=== PATIENT | female | born 1960 | race Hispanic/Latino ===

== ENCOUNTER 2017-04-06 13:38 | Emergency (ER) | payer MEDICAID ==
[2017-04-06] MEDS ORDERED: Water For Inject, Bacteriostat 30 ML ONE (14:24)
[2017-04-06] MEDS ORDERED: methylPREDNISolone Sod Succ/PF 125 MG/2 ML VIAL ONE (14:24)
[2017-04-06 14:30] LABS: #Basophils 0.1 thou/uL (0.0-0.2); #Eosinphils 0.1 thou/uL (0.0-0.7); #Lymphocytes 3.4 thou/uL (1.20-3.40); #Monocytes 0.7 thou/uL (0.11-0.59); #Neutrophils 5.5 thou/uL (1.40-6.50); %Eosinophils 1.4 % (0.0-10.0); %Lymphocytes 34.3 % (21.0-51.0); Hematocrit 41.7 % (36.0-47.0); Mean Platelet Volume 7.8 fL (7.4-10.4); Red Blood Cell (RBC) Count 4.52 mill/uL (4.20-5.40); White Blood Cell (WBC) Count 9.8 thou/uL (4.8-10.8)
[2017-04-06 14:37] LABS: PTT 29.1 SEC (22.9-36.1)
[2017-04-06 14:53] LABS: ALT (SGPT) 25 U/L (8-55); AST (SGOT) 17 U/L (5-34); Alkaline Phosphatase 101 U/L (40-150); Anion Gap 13 mmol/L (10-20); BUN (Urea Nitrogen) 10 mg/dL (9.8-20.1); Bilirubin, Total 0.4 mg/dL (0.2-1.2); CK (CPK) 68 U/L (29-168); Calc. Creatinine Clearance 0 mL/min (70-130); Calcium 9.6 mg/dL (7.8-10.44); Carbon Dioxide 24 mmol/L (22-29); Chloride 106 mmol/L (98-107); Estimated GFR-MDRD 74; Globulin 3.9 g/dL (2.4-3.5); Lipase 18 U/L (8-78); Protein, Total 7.9 g/dL (6.0-8.3)
[2017-04-06 14:56] LABS: Troponin I Less than 0.010 ng/mL (< 0.028)
--- NOTE | 2017-04-06 15:18 | RAD ---
TWO VIEW CHEST SERIES: COMPARISON: 01/31/17. INDICATION: Dyspnea. FINDINGS: No consolidation, effusion, or pneumothorax. Cardiac silhouette is within normal limits of size. L chung overlie the chest limiting detail. There is evidence of postoperative change within the cervic al spine and metallic clips are seen overlying the right aspect of the neck. IMPRESSION: No focal consolidation. POS: [facility]
[2017-04-06 15:48] LABS: Oxyhemoglobin 92.4 % (94.0-97.0); Sodium 144 mmol/L (135-148)
[2017-04-06 15:49] LABS: Mode ROOM AIR; Modified Allen's Test POSITIVE
--- NOTE | 2017-04-06 16:23 | CT ---
CTA OF THE THORAX UTILIZING IV CONTRAST PE PROTOCOL AND 3D REFORMATTED IMAGING 04/06/17 INDICATION: Dyspnea COMPARISON: None. FINDINGS: No central or segmental pulmonary embolus is present. The heart and great vessels appear within norm al limits. There is some subsegmental volume loss seen within the posterior lower lobes dependently. No conflue nt air space opacity, pleural effusion or pneumothorax is evident. No pathologically enlarged lymph nodes are evident. There are bilateral prepectoral breast implants. There are nonpathologically enla rged lymph nodes within the axilla. There is fatty infiltration of the liver with areas of focal spa rring near the gallbladder fossa. The pancreas and adrenal glands appear within normal limits. No definite acute osseous abnormality is evident. IMPRESSION: 1. No central or segmental pulmonary embolus present. 2. Fatty liver. POS: [facility]
[2017-04-06] MEDS ORDERED: ISOVUE-370 76%-LOCM 1 ML ONE (16:40)
[2017-04-06] MEDS ORDERED: Ondansetron HCl/PF 4 MG/2 ML Vial ONE (16:46)
== END 2017-04-06 17:09 | disposition home or self-care (01) ==
LOC: ERS 13:38
DX: R07.89 Other chest pain (principal); R06.00 Dyspnea, unspecified; I10 Essential (primary) hypertension; F41.9 Anxiety disorder, unspecified; Z87.891 Personal history of nicotine dependence
CPT/HCPCS: 36415; 71020; 71275; 80053; 82553; 82805; 83690; 83880; 84484; 85025; 85379; 85610; 85730; 93005; 94640; 96374; 96375; J2270; J2405; J2930; J7620

== ENCOUNTER 2017-08-21 15:13 | Emergency (ER) | payer MEDICAID ==
[2017-08-21] MEDS ORDERED: Adacel (T-DAP) 0.5 ML VIAL ONE (15:39)
--- NOTE | 2017-08-21 15:58 | RAD ---
RIGHT LITTLE FINGER 3 VIEWS: HISTORY: Right finger injury. FINDINGS: Soft tissue swelling is apparent. Joint spaces are preserved. No acute fracture, dislocation, or me tallic foreign bodies. IMPRESSION: No acute osseous abnormalities are demonstrated. POS: [facility]
[2017-08-21] MEDS ORDERED: Ondansetron ODT 4 MG TAB ONE (16:00)
[2017-08-21] MEDS ORDERED: Bacitracin Zinc 1 Packet ONE (16:00)
[2017-08-21] MEDS ORDERED: HYDROcodone/Acetaminophen 5/325 mg Tablet ONE (16:19)
[2017-08-21] MEDS ORDERED: diphenhydrAMINE 25 MG CAP ONE (16:19)
== END 2017-08-21 16:45 | disposition home or self-care (01) ==
LOC: ERS 15:13
DX: S67.196A Crushing injury of right little finger, initial encounter (principal); S61.216A Laceration without foreign body of right little finger without damage to nail, initial encounter; I10 Essential (primary) hypertension; F41.9 Anxiety disorder, unspecified; Z87.891 Personal history of nicotine dependence; W23.0XXA Caught, crushed, jammed, or pinched between moving objects, initial encounter
CPT/HCPCS: 90471; 90715; Q0162

== ENCOUNTER 2018-01-07 23:20 | Emergency (ER) | payer MEDICAID ==
--- NOTE | 2018-01-07 23:52 | RAD ---
SINGLE VIEW OF THE CHEST: 01/07/18 COMPARISON: 01/31/17 HISTORY: Chest pain and shortness of breath. FINDINGS: Single view of the chest shows a normal sized cardiomediastinal silhouette. There is no evidence of c onsolidation, mass, or pleural effusion. The bones are unremarkable. IMPRESSION: No evidence of acute cardiopulmonary disease. POS: [facility]
[2018-01-08] MEDS ORDERED: Ondansetron ODT 4 MG TAB ONE (00:05)
[2018-01-08] MEDS ORDERED: Ondansetron HCl/PF 4 MG/2 ML Vial ONE (00:06)
[2018-01-08 00:09] LABS: #Basophils 0.1 thou/uL (0.0-0.2); #Eosinphils 0.1 thou/uL (0.0-0.7); #Lymphocytes 4.3 thou/uL (1.20-3.40); #Monocytes 1.2 thou/uL (0.11-0.59); #Neutrophils 7.2 thou/uL (1.40-6.50); %Basophils 0.8 % (0.0-1.0); %Eosinophils 0.8 % (0.0-10.0); %Lymphocytes 32.9 % (21.0-51.0); %Monocytes 9.5 % (0.0-10.0); Hemoglobin 14.7 g/dL (12.0-16.0); Mean Corpuscular Hemoglobin 30.6 pg (27.0-31.0); Mean Corpuscular Volume 89.8 fL (78.0-98.0); Mean Platelet Volume 7.1 fL (7.4-10.4); Platelet Count 388 thou/uL (130-400); RBC Distribution Width 11.9 % (11.5-14.5); Red Blood Cell (RBC) Count 4.81 mill/uL (4.20-5.40); White Blood Cell (WBC) Count 12.9 thou/uL (4.8-10.8)
[2018-01-08 00:22] LABS: ALT (SGPT) 53 U/L (8-55); AST (SGOT) 36 U/L (5-34); Albumin 4.6 g/dL (3.5-5.0); Alkaline Phosphatase 107 U/L (40-150); Anion Gap 15 mmol/L (10-20); BUN (Urea Nitrogen) 11 mg/dL (9.8-20.1); Bilirubin, Total 0.6 mg/dL (0.2-1.2); Calc. Creatinine Clearance 0 mL/min (70-130); Calcium 9.5 mg/dL (7.8-10.44); Carbon Dioxide 23 mmol/L (22-29); Chloride 106 mmol/L (98-107); Estimated GFR-MDRD 66; Globulin 3.8 g/dL (2.4-3.5); Glucose 114 mg/dL (70-105); Lipase 23 U/L (8-78); Magnesium 2.5 mg/dL (1.6-2.6); Potassium 3.7 mmol/L (3.5-5.1); Protein, Total 8.4 g/dL (6.0-8.3); Sodium 140 mmol/L (136-145)
[2018-01-08 00:26] LABS: Troponin I 0.012 ng/mL (< 0.028)
[2018-01-08] MEDS ORDERED: Ketorolac Tromethamine 30 MG/ML VIAL ONE (01:28)
[2018-01-08] MEDS ORDERED: HYDROcodone/Acetaminophen 10/325 mg Tablet ONE (01:28)
--- NOTE | 2018-01-08 08:30 | RAD ---
RIGHT FOOT 3 VIEWS: HISTORY: Injury and pain. COMPARISON: None. FINDINGS: Joint spaces are preserved. Lisfranc alignment is maintained. No fracture. IMPRESSION: No fracture. POS: [facility]
--- NOTE | 2018-01-08 09:03 | ULT ---
PRELIMINARY REPORT/[facility]/EMERGENTY AFTER-HOURS PROCEDURE US Abdomen Limited, Right Upper Quadrant CLINICAL HISTORY: 57 years old, female; Pain; Other: Ruq pain TECHNIQUE: Real-time ultrasound of the right upper quadrant with image documentation. COMPARISON: No relevant prior studies available. FINDINGS: Liver: Liver demonstrates fatty infiltration without visible focal mass. No intrahepatic bile duct di lation. Gallbladder: No acute findings. No gallstones. Common bile duct: Unremarkable as visualized. 5 mm. No stones. No dilation. Pancreas: Not well visualized. Right kidney: No acute findings. 10. 8 cm. No stones. No solid mass. No hydronephrosis. IMPRESSION: Fatty liver. No gallstones or biliary dilation. Thank you for allowing us to participate in the care of your patient. Dictated and Authenticated by: Shara Falk MD 01/08/2018 12:57 AM Central Time ([place] & [place]) FINAL REPORT GALLBLADDER ULTRASOUND: HISTORY: Right upper quadrant pain. COMPARISON: None. TECHNIQUE: Utilizing a multihertz transducer, sonographic imaging of the right upper quadrant is performed in th e longitudinal and transverse plane. FINDINGS: This report is in agreement with the preliminary report by [facility]. Increased echogenicity of the liver may be due to hepatic steatosis or hepatic disease. No definite evidence of cholelithiasis or cholec ystitis. Drapery Operator does report a slightly positive Ferrer's sign. Further evaluation with nonemer gent HIDA scan is recommended. Common bile duct diameter is 0.5 cm. POS: [facility]
== END 2018-01-08 01:36 | disposition home or self-care (01) ==
LOC: ERS 23:20
DX: K82.8 Other specified diseases of gallbladder (principal); I10 Essential (primary) hypertension; F41.9 Anxiety disorder, unspecified; Z87.891 Personal history of nicotine dependence; Z79.899 Other long term (current) drug therapy
CPT/HCPCS: 71045; 76705; 80053; 82553; 83690; 83735; 84484; 85025; 85379; 96361; 96372; 96374; 96375; J1885; J2270; J2405; Q0162

== ENCOUNTER 2018-06-02 21:09 | Emergency (ER) | payer MEDICAID ==
[2018-06-02] MEDS ORDERED: Ketorolac Tromethamine 60 MG/2 ML VIAL ONE (21:23)
--- NOTE | 2018-06-02 22:32 | RAD ---
LEFT RIBS THREE VIEWS: 06/02/18 COMPARISON: None. HISTORY: Popped in the left side of the chest. FINDINGS: Three views of the left ribs provided. Cervical spine hardware noted. No displaced left sided rib fra cture is evident. IMPRESSION: No displaced left sided rib fracture seen. POS: [facility]
[2018-06-02] MEDS ORDERED: Morphine 4 MG/ML VIAL ONE (23:47)
[2018-06-02] MEDS ORDERED: Ondansetron ODT 4 MG TAB ONE (23:48)
== END 2018-06-03 00:25 | disposition home or self-care (01) ==
LOC: ERS 21:09
DX: R07.81 Pleurodynia (principal); I10 Essential (primary) hypertension; F41.9 Anxiety disorder, unspecified; Z87.891 Personal history of nicotine dependence; Z79.899 Other long term (current) drug therapy
CPT/HCPCS: 96372; J1885; J2270; Q0162

== ENCOUNTER 2018-08-23 21:25 | Emergency (ER) | payer MEDICAID ==
[2018-08-23] MEDS ORDERED: Aspirin Chewable 81 MG TAB ONE ×2 (22:07→22:57)
[2018-08-23 22:11] LABS: #Basophils 0.2 thou/uL (0.0-0.2); #Eosinphils 0.2 thou/uL (0.0-0.7); #Monocytes 0.9 thou/uL (0.11-0.59); #Neutrophils 7.3 thou/uL (1.40-6.50); %Basophils 1.2 % (0.0-1.0); %Eosinophils 1.2 % (0.0-10.0); %Lymphocytes 37.2 % (21.0-51.0); %Monocytes 6.5 % (0.0-10.0); %Neutrophils 53.9 % (42.0-75.0); Hemoglobin 14.3 g/dL (12.0-16.0); Mean Corpuscular HGB CONC 33.8 g/dL (32.0-36.0); Mean Corpuscular Hemoglobin 31.4 pg (27.0-31.0); Mean Corpuscular Volume 92.8 fL (78.0-98.0); Mean Platelet Volume 7.9 fL (7.4-10.4); Platelet Count 392 thou/uL (130-400); RBC Distribution Width 11.5 % (11.5-14.5); Red Blood Cell (RBC) Count 4.56 mill/uL (4.20-5.40); White Blood Cell (WBC) Count 13.6 thou/uL (4.8-10.8)
--- NOTE | 2018-08-23 22:28 | RAD ---
CHEST ONE VIEW 08/23/18 INDICATION: Chest pain for 20 minutes. COMPARISON: Prior exam dated 01/07/18. FINDINGS: The lungs are clear. Heart size is normal. No pleural effusions evident. No acute osseous abnormality is noted. There is partial visualization of an ACDF plate involving the lower cervical spine. IMPRESSION: No acute cardiopulmonary abnormality. POS: [facility]
[2018-08-23 22:31] LABS: ALT (SGPT) 38 U/L (8-55); AST (SGOT) 26 U/L (5-34); Albumin 4.6 g/dL (3.5-5.0); Alkaline Phosphatase 117 U/L (40-150); Anion Gap 16 mmol/L (10-20); BUN (Urea Nitrogen) 10 mg/dL (9.8-20.1); Bilirubin, Total 0.3 mg/dL (0.2-1.2); CK (CPK) 121 U/L (29-168); Calc. Creatinine Clearance 0 mL/min (70-130); Calcium 9.8 mg/dL (7.8-10.44); Carbon Dioxide 25 mmol/L (22-29); Chloride 102 mmol/L (98-107); Estimated GFR-MDRD 60; Globulin 3.8 g/dL (2.4-3.5); Glucose 97 mg/dL (70-105); Potassium 4.1 mmol/L (3.5-5.1); Protein, Total 8.4 g/dL (6.0-8.3); Sodium 139 mmol/L (136-145)
[2018-08-23] MEDS ORDERED: Cyclobenzaprine 10 MG TAB ONE (22:57)
--- NOTE | 2018-08-27 17:34 | EKG ---
Test Reason : Blood Pressure : / mmHG Vent. Rate : 068 BPM Atrial Rate : 068 BPM P-R Int : 156 ms QRS Dur : 090 ms QT Int : 408 ms P-R-T Axes : 016 029 058 degrees QTc Int : 433 ms Normal sinus rhythm Normal ECG Confirmed by JONATHAN SANDS, TORRI Veloz ([id number]), city editor NATALIIA DEL CID ([id number]) on 08/27/2018 5:34:17 PM Referred By: Confirmed By:TORRI CASTILLO MD
== END 2018-08-23 23:13 | disposition home or self-care (01) ==
LOC: ERS 21:25
DX: R07.9 Chest pain, unspecified (principal); I10 Essential (primary) hypertension; F41.9 Anxiety disorder, unspecified; Z87.891 Personal history of nicotine dependence; Z79.1 Long term (current) use of non-steroidal anti-inflammatories (NSAID); Z79.899 Other long term (current) drug therapy
CPT/HCPCS: 36415; 71045; 80053; 82550; 84484; 85025; 93005

== ENCOUNTER 2018-12-04 22:11 | Emergency (ER) | payer MEDICAID ==
[2018-12-04] MEDS ORDERED: Ketorolac Tromethamine 30 MG/ML VIAL ONE (22:40)
[2018-12-04 23:32] LABS: ALT (SGPT) 26 U/L (8-55); AST (SGOT) 17 U/L (5-34); Albumin 4.2 g/dL (3.5-5.0); Alkaline Phosphatase 87 U/L (40-150); Anion Gap 13 mmol/L (10-20); BUN (Urea Nitrogen) 13 mg/dL (9.8-20.1); Bilirubin, Total 0.3 mg/dL (0.2-1.2); Calc. Creatinine Clearance 0 mL/min (70-130); Carbon Dioxide 25 mmol/L (22-29); Chloride 107 mmol/L (98-107); Estimated GFR-MDRD 71; Globulin 3.2 g/dL (2.4-3.5); Glucose 92 mg/dL (70-105); Potassium 3.4 mmol/L (3.5-5.1); Protein, Total 7.4 g/dL (6.0-8.3); Sodium 142 mmol/L (136-145)
[2018-12-04 23:46] LABS: Hemoglobin 13.5 g/dL (12.0-16.0); Mean Corpuscular HGB CONC 33.1 g/dL (32.0-36.0); Mean Corpuscular Hemoglobin 30.5 pg (27.0-31.0); Mean Corpuscular Volume 92.1 fL (78.0-98.0); Mean Platelet Volume 7.8 fL (7.4-10.4); Platelet Count 353 thou/uL (130-400); RBC Distribution Width 11.6 % (11.5-14.5); Red Blood Cell (RBC) Count 4.41 mill/uL (4.20-5.40)
--- NOTE | 2018-12-04 23:46 | RAD ---
EXAM: Chest 2 views: HISTORY: Chest pain COMPARISON: 04/06/2017 FINDINGS: There is a normal-sized cardiomediastinal silhouette. There is no evidence of consolidation, mass, or pleural effusion. Hardware is seen in the lower cervical spine. IMPRESSION: No evidence of acute cardiopulmonary disease
--- NOTE | 2018-12-04 23:46 | ULT ---
EXAM: Right upper extremity venous ultrasound HISTORY: Right upper extremity pain COMPARISON: None TECHNIQUE: Multiplanar grayscale and color Doppler images were obtained in a right upper extremity ve nous ultrasound. Spectral analysis of the Doppler waveforms were performed. FINDINGS: The right internal jugular vein demonstrates normal compression and flow without evidence o f thrombus. The right subclavian vein demonstrates normal flow and augmentation without evidence of thrombus. The right axillary and brachial veins demonstrate normal compression, flow, and augmentatio n without evidence of thrombus. The venous structures distal to the elbow are unremarkable. The basilic and cephalic veins are patent . IMPRESSION: No evidence of DVT.
[2018-12-05] LABS: Band 7 % (5-11); Lymphocytes 31 % (21-51); MDiff Complete? YES; Monocytes 4 % (0-10); Neutrophil 58 % (42-75)
[2018-12-05] MEDS ORDERED: Morphine 10 MG/ML VIAL ONE
[2018-12-05] MEDS ORDERED: HYDROcodone/Acetaminophen 5/325 mg Tablet ONE (02:31)
== END 2018-12-05 03:25 | disposition home or self-care (01) ==
LOC: ERS 22:11
DX: M79.631 Pain in right forearm (principal); D72.829 Elevated white blood cell count, unspecified; I10 Essential (primary) hypertension; F41.9 Anxiety disorder, unspecified; Z87.891 Personal history of nicotine dependence; Z79.899 Other long term (current) drug therapy; Z79.1 Long term (current) use of non-steroidal anti-inflammatories (NSAID)
CPT/HCPCS: 36415; 71046; 80053; 84484; 85025; 93005; 96372; J1885; J2270

== ENCOUNTER 2020-06-22 19:14 | Emergency (ER) | payer MEDICAID ==
[2020-06-22] MEDS ORDERED: HYDROcodone/Acetaminophen 10/325 mg Tablet ONE (21:19)
--- NOTE | 2020-06-22 22:08 | RAD ---
LEFT FOOT THREE VIEWS: History: Injury Comparison: None FINDINGS: Incidental note is made of a navicular ossicle. No acute displaced fracture or malalignment. Soft tis sues are unremarkable. IMPRESSION: No acute osseous abnormality. POS: [facility]
== END 2020-06-22 21:37 | disposition home or self-care (01) ==
LOC: ERS 19:14
DX: M79.2 Neuralgia and neuritis, unspecified (principal); M79.672 Pain in left foot; I10 Essential (primary) hypertension; Z87.891 Personal history of nicotine dependence; Z79.899 Other long term (current) drug therapy

== ENCOUNTER 2021-03-23 14:08 | Observation (INO) | payer MEDICAID ==
[2021-03-23 15:39] LABS: #Basophils 0.1 thou/uL (0.0-0.2); #Eosinphils 0.1 thou/uL (0.0-0.7); #Lymphocytes 3.3 thou/uL (1.20-3.40); #Monocytes 0.6 thou/uL (0.11-0.59); #Neutrophils 7.7 thou/uL (1.40-6.50); %Basophils 0.8 % (0.0-1.0); %Eosinophils 0.5 % (0.0-10.0); %Lymphocytes 27.9 % (21.0-51.0); %Monocytes 5.3 % (0.0-10.0); %Neutrophils 65.5 % (42.0-75.0); Hemoglobin 14.8 g/dL (12.0-16.0); Mean Corpuscular HGB CONC 34.5 g/dL (32.0-36.0); Mean Corpuscular Hemoglobin 31.8 pg (27.0-31.0); Mean Corpuscular Volume 92.1 fL (78.0-98.0); Mean Platelet Volume 7.9 fL (7.4-10.4); Platelet Count 398 thou/uL (130-400); RBC Distribution Width 11.2 % (11.5-14.5); Red Blood Cell (RBC) Count 4.67 mill/uL (4.20-5.40); White Blood Cell (WBC) Count 11.8 thou/uL (4.8-10.8)
[2021-03-23 16:03] LABS: ALT (SGPT) 15 U/L (8-55); AST (SGOT) 17 U/L (5-34); Albumin 4.6 g/dL (3.4-4.8); Alkaline Phosphatase 96 U/L (40-110); Anion Gap 14 mmol/L (10-20); BUN (Urea Nitrogen) 10 mg/dL (9.8-20.1); Bilirubin, Total 0.5 mg/dL (0.2-1.2); Calc. Creatinine Clearance 0 mL/min (70-130); Calcium 9.8 mg/dL (7.8-10.44); Carbon Dioxide 24 mmol/L (23-31); Chloride 105 mmol/L (98-107); Globulin 3.6 g/dL (2.4-3.5); Glucose 98 mg/dL (80-115); Potassium 4.2 mmol/L (3.5-5.1); Protein, Total 8.2 g/dL (5.8-8.1); Sodium 139 mmol/L (136-145)
[2021-03-23] MEDS ORDERED: Nitroglycerin 2% Ointment 1 INCH/1 GM Packet ONE (17:04)
[2021-03-23] MEDS ORDERED: Aspirin Chewable 81 MG TAB ONE (17:04)
[2021-03-23] MEDS ORDERED: Acetaminophen 325 MG TAB PO PRN (19:10)
[2021-03-23] MEDS ORDERED: Nitroglycerin 0.4 MG TAB (25 Tab Bottle) SL PRN (19:15)
[2021-03-23 19:43] VITALS: BMI 29.7
[2021-03-23 20:08] LABS: Troponin I Less than 0.010 ng/mL (< 0.028)
[2021-03-23 20:40] LABS: SARS-CoV-2 NAA Rapid Test Not Detected (NotDetected)
[2021-03-23] MEDS ORDERED: traMADol HCl 50 MG TAB PO PRN (21:56)
[2021-03-23 23:22] LABS: Troponin I Less than 0.010 ng/mL (< 0.028)
[2021-03-24 03:38] VITALS: TEMP 98.1
[2021-03-24 08:25] LABS: #Basophils 0.1 thou/uL (0.0-0.2); #Eosinphils 0.1 thou/uL (0.0-0.7); #Lymphocytes 3.5 thou/uL (1.20-3.40); #Monocytes 0.5 thou/uL (0.11-0.59); #Neutrophils 4.5 thou/uL (1.40-6.50); %Basophils 0.8 % (0.0-1.0); %Eosinophils 1.1 % (0.0-10.0); %Lymphocytes 40.1 % (21.0-51.0); %Monocytes 6.2 % (0.0-10.0); %Neutrophils 51.8 % (42.0-75.0); Hemoglobin 14.1 g/dL (12.0-16.0); Mean Corpuscular HGB CONC 33.5 g/dL (32.0-36.0); Mean Corpuscular Hemoglobin 30.6 pg (27.0-31.0); Mean Corpuscular Volume 91.2 fL (78.0-98.0); Mean Platelet Volume 7.6 fL (7.4-10.4); Platelet Count 366 thou/uL (130-400); RBC Distribution Width 11.2 % (11.5-14.5); White Blood Cell (WBC) Count 8.8 thou/uL (4.8-10.8)
[2021-03-24 08:44] LABS: Anion Gap 11 mmol/L (10-20); BUN (Urea Nitrogen) 11 mg/dL (9.8-20.1); Calc. Creatinine Clearance 98 mL/min (70-130); Calcium 9.7 mg/dL (7.8-10.44); Carbon Dioxide 24 mmol/L (23-31); Cardiac Risk 5.3 (Less than 4.5); Chloride 107 mmol/L (98-107); Cholesterol 237 mg/dl (< 200 Desired); Glucose 98 mg/dL (80-115); HDL Cholesterol 45 mg/dL (>60 Neg Risk); LDL Cholesterol, Calculated 151 mg/dL; Potassium 3.9 mmol/L (3.5-5.1); Sodium 138 mmol/L (136-145); Triglycerides 207 mg/dL (Less than 150)
[2021-03-24] MEDS ORDERED: Aspirin Chewable 81 MG TAB PO SCH (09:00)
[2021-03-24 12:15] VITALS: BP 142/79
[2021-03-24] MEDS ORDERED: ADENOSINE 60 MG/20 ML VIAL ONE (15:13)
[2021-03-24] MEDS ORDERED: Atorvastatin Calcium 40 MG TAB PO SCH (21:00)
== END 2021-03-24 16:40 | disposition home or self-care (01) ==
LOC: ERS 14:08 → ERHOLD 17:43 → 2NO 22:01
PROVIDERS: ADMIT Internal Medicine; ATTEND Internal Medicine
DX: R07.89 Other chest pain (principal); I10 Essential (primary) hypertension; E78.5 Hyperlipidemia, unspecified; Z87.891 Personal history of nicotine dependence; Z79.82 Long term (current) use of aspirin; Z79.899 Other long term (current) drug therapy; Z88.0 Allergy status to penicillin; Z88.1 Allergy status to other antibiotic agents; Z91.040 Latex allergy status; Z91.048 Other nonmedicinal substance allergy status; Z20.822 Contact with and (suspected) exposure to COVID-19
CPT/HCPCS: 36415; 71045; 78452; 80048; 80053; 80061; 84484; 85025; 93005; 93017; 94760; A9500; G0378; J0153; U0002

== ENCOUNTER 2022-07-31 00:48 | Emergency (ER) | payer MEDICAID ==
[2022-07-31] MEDS ORDERED: Ketorolac Tromethamine 30 MG/ML VIAL ONE (01:41)
== END 2022-07-31 01:49 | disposition home or self-care (01) ==
LOC: ERS 00:48
DX: B02.9 Zoster without complications (principal); I10 Essential (primary) hypertension; E78.00 Pure hypercholesterolemia, unspecified; Z87.891 Personal history of nicotine dependence
CPT/HCPCS: 96372; 99282; J1885

== ENCOUNTER 2023-07-02 15:59 | Emergency (ER) | payer MEDICAID | END 2023-07-02 16:27 | disposition home or self-care (01) | LOC: ERS 15:59 | DX: R05.9 Cough, unspecified (principal); I10 Essential (primary) hypertension; Z87.891 Personal history of nicotine dependence | CPT/HCPCS: 99283 ==